=== PATIENT | female | born 1975 | race Caucasian/White ===

== ENCOUNTER → 2023-11-17 | Day surgery (SDC) | payer MEDICARE ==
[~2023-11-17] VITALS: Ht 165.1 cm; Wt 88.5 kg
[~2023-11-17] MED LIST: ACETAMINOPHEN 100 ML IV ONE; ASPIRIN ADULT L81 M1 PO; BUPIVACAINE 0.5% 0 ML IV ONE; DEXMEDETOMIDINE HCL 200 MCG/2 ML VIAL IV ONE; DOXYCYCLINE HY100 M3 PO; Dexamethasone Sodium Phospha 4 MG/ML VIAL IV ONE; GLIMEPIRIDE4 M1 PO; HYDROmorphONE Hydrochloride 0.5 MG/0.5 ML SYRINGE IV PRN; Ketamine Hydrochloride 500 MG/10 ML VIAL IV ONE; LEVEMIR100 UNIT/1 SC; Lactated Ringer's Solution 1,000 ML IV ONE; Lidocaine Hydrochloride 2% 5 ML SDV IV ONE; MAGNESIUM SULFATE 1 GM/2 ML VIAL IV ONE; Midazolam Hydrochloride 2 MG/2 ML VIAL IV ONE; OZEMPIC0.25 MG/03 SQ; Ondansetron Hydrochloride 4 MG/2 ML VIAL IV ONE; PROPOFOL 200 MG/20 ML VIAL IV ONE; ROCURONIUM BROMIDE 50 MG/5 ML SYRINGE IV ONE; ROSUVASTATIN-E1 EACH PO; SEVOFLURANE 250 ML BOT INH ONE; SUGAMMADEX SODIUM 200 MG/2 ML VIAL IV ONE; TYLENOL EXTRA500 MG PO; Vancomycin Hydrochloride 1,000 MG VIAL ONE; XARELTO10 MG PO; ceFAZolin sodium/sodium chlor 1 GM/10 ML SYR IV ONE; ceFAZolin sodium/sodium chlor 20 ML IV ONE
[2023-11-17 07:04] VITALS: BP 141/70
[2023-11-17 09:02] VITALS: BP 137/65
[2023-11-17 09:17] VITALS: BP 126/66
[2023-11-17 09:32] VITALS: BP 119/58
[2023-11-17 09:47] VITALS: BP 124/67
[2023-11-17 10:02] VITALS: BP 122/69
[2023-11-18 16:09] LABS: ACID FAST SPEC PROCESSING Tissue Grinding (.)
[2023-11-18 16:09] LABS: ACID FAST SPEC PROCESSING Tissue Grinding (.)
== END | disposition home or self-care (01) ==
LOC: SDC 11-15 08:00
PROVIDERS: ATTEND Podiatrist
DX: M62.461 Contracture of muscle, right lower leg (principal); M86.8X7 Other osteomyelitis, ankle and foot; E11.621 Type 2 diabetes mellitus with foot ulcer; I10 Essential (primary) hypertension; E11.42 Type 2 diabetes mellitus with diabetic polyneuropathy; E78.00 Pure hypercholesterolemia, unspecified; F32.A Depression, unspecified; Z88.0 Allergy status to penicillin; Z88.8 Allergy status to other drugs, medicaments and biological substances; Z98.890 Other specified postprocedural states; Z79.82 Long term (current) use of aspirin; Z79.4 Long term (current) use of insulin; Z79.899 Other long term (current) drug therapy

== ENCOUNTER → 2024-04-19 | Outpatient (CLI) | payer MEDICARE ==
[~2024-04-19] MED LIST changes: -ACETAMINOPHEN 100 ML IV ONE; -BUPIVACAINE 0.5% 0 ML IV ONE; -DEXMEDETOMIDINE HCL 200 MCG/2 ML VIAL IV ONE; -Dexamethasone Sodium Phospha 4 MG/ML VIAL IV ONE; +HUMALOG MI100 UNIT/1 SC; -HYDROmorphONE Hydrochloride 0.5 MG/0.5 ML SYRINGE IV PRN; -Ketamine Hydrochloride 500 MG/10 ML VIAL IV ONE; -Lactated Ringer's Solution 1,000 ML IV ONE; -Lidocaine Hydrochloride 2% 5 ML SDV IV ONE; -MAGNESIUM SULFATE 1 GM/2 ML VIAL IV ONE; -Midazolam Hydrochloride 2 MG/2 ML VIAL IV ONE; -Ondansetron Hydrochloride 4 MG/2 ML VIAL IV ONE; -PROPOFOL 200 MG/20 ML VIAL IV ONE; -ROCURONIUM BROMIDE 50 MG/5 ML SYRINGE IV ONE; -SEVOFLURANE 250 ML BOT INH ONE; -SUGAMMADEX SODIUM 200 MG/2 ML VIAL IV ONE; -Vancomycin Hydrochloride 1,000 MG VIAL ONE; -ceFAZolin sodium/sodium chlor 1 GM/10 ML SYR IV ONE; -ceFAZolin sodium/sodium chlor 20 ML IV ONE
== END | disposition home or self-care (01) ==
LOC: US 17:40
PROVIDERS: ATTEND Podiatrist
DX: M79.662 Pain in left lower leg (principal); R60.0 Localized edema

== ENCOUNTER → 2024-11-01 | Day surgery (SDC) | payer MEDICARE, MEDICAID ==
[~2024-11-01] VITALS: Ht 165.1 cm; Wt 93.0 kg
[~2024-11-01] MED LIST changes: +ACETAMINOPHEN 100 ML IV ONE; +ACETAMINOPHEN500 M4 PO; +ADMELOG100 UNIT/1 SQ; +CEFEPIME2 GM/100 M IV; +DOXYCYCLINE MO100 MG PO; +Dexamethasone Sodium Phospha 4 MG/ML VIAL IV ONE; +HUMULIN R500 UNIT/1 SQ; +LANTUS100 UNIT/1 SC; +LISINOPRIL5 MG PO; +Lactated Ringer's Solution 1,000 ML IV ONE; +Lidocaine Hydrochloride 2% 5 ML SDV IV ONE; +METRONIDAZOLE500 M1 PO; +MIDAZOLAM HCL IN 0.9 % NACL/PF 50 MG/50 ML PLAST..BAG IV ONE; +NYAMYC15 GM T; +Ondansetron Hydrochloride 4 MG/2 ML VIAL IV ONE; +PROPOFOL 200 MG/20 ML VIAL IV ONE; +SEVOFLURANE 250 ML BOT INH ONE; +TRAMADOL HCL50 MG PO; +ceFAZolin sodium/sodium chlor 20 ML IV ONE
[2024-11-01 07:30] VITALS: BP 126/69
[2024-11-01 11:25] VITALS: BP 128/75
[2024-11-01 11:40] VITALS: BP 139/72
[2024-11-01 11:55] VITALS: BP 125/68
[2024-11-01 12:09] VITALS: BP 131/69
[2024-11-01 12:32] VITALS: BP 136/68
[2024-11-02 14:08] LABS: ACID FAST SPEC PROCESSING Tissue Grinding (.)
[2024-11-02 14:08] LABS: ACID FAST SPEC PROCESSING Tissue Grinding (.)
== END | disposition home or self-care (01) ==
LOC: SDC 10-30 08:45
PROVIDERS: ATTEND Podiatrist
DX: S81.802A Unspecified open wound, left lower leg, initial encounter (principal); M86.172 Other acute osteomyelitis, left ankle and foot; M89.371 Hypertrophy of bone, right ankle and foot; I10 Essential (primary) hypertension; D64.9 Anemia, unspecified; E78.5 Hyperlipidemia, unspecified; F32.89 Other specified depressive episodes; E11.65 Type 2 diabetes mellitus with hyperglycemia; E11.42 Type 2 diabetes mellitus with diabetic polyneuropathy; M86.9 Osteomyelitis, unspecified; E66.9 Obesity, unspecified; Z68.30 Body mass index [BMI] 30.0-30.9, adult; Z98.890 Other specified postprocedural states; Z79.4 Long term (current) use of insulin; Z88.8 Allergy status to other drugs, medicaments and biological substances; X58.XXXA Exposure to other specified factors, initial encounter; Y93.89 Activity, other specified; Y92.89 Other specified places as the place of occurrence of the external cause; Y99.8 Other external cause status

== ENCOUNTER → 2025-01-31 | Outpatient (CLI) | payer MEDICARE, MEDICAID ==
[~2025-01-31] MED LIST changes: -ACETAMINOPHEN 100 ML IV ONE; -Dexamethasone Sodium Phospha 4 MG/ML VIAL IV ONE; -Lactated Ringer's Solution 1,000 ML IV ONE; -Lidocaine Hydrochloride 2% 5 ML SDV IV ONE; -MIDAZOLAM HCL IN 0.9 % NACL/PF 50 MG/50 ML PLAST..BAG IV ONE; -Ondansetron Hydrochloride 4 MG/2 ML VIAL IV ONE; -PROPOFOL 200 MG/20 ML VIAL IV ONE; -SEVOFLURANE 250 ML BOT INH ONE; -ceFAZolin sodium/sodium chlor 20 ML IV ONE
== END | disposition home or self-care (01) ==
LOC: US 10:06
PROVIDERS: ATTEND Podiatrist
DX: R22.42 Localized swelling, mass and lump, left lower limb (principal)